=== PATIENT | male | born 1970 | race Caucasian/White ===

== ENCOUNTER 2018-02-13 22:51 | Emergency (ER) | payer OTHER ==
[2018-02-13 23:08] VITALS: TEMP 98.2
[2018-02-14] MEDS ORDERED: IBUPROFEN 600 MG TAB PO ONE ×2 (02:32→02:34)
[2018-02-14] MEDS ORDERED: ACETAMINOPHEN 500 MG TAB PO ONE (02:36)
[2018-02-14] MEDS ORDERED: ACETAMINOPHEN 500 MG TAB ONE (02:36)
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
[2018-02-14 05:48] VITALS: BP 130/82; PULSE 78; RESP 18; O2SAT 97
== END 2018-02-14 05:54 | disposition home or self-care (01) ==
DX: S09.90XA Unspecified injury of head, initial encounter (principal); S19.9XXA Unspecified injury of neck, initial encounter; S40.812A Abrasion of left upper arm, initial encounter; S40.811A Abrasion of right upper arm, initial encounter; S80.212A Abrasion, left knee, initial encounter; S80.211A Abrasion, right knee, initial encounter; F17.200 Nicotine dependence, unspecified, uncomplicated; V48.0XXA Car driver injured in noncollision transport accident in nontraffic accident, initial encounter; Y92.410 Unspecified street and highway as the place of occurrence of the external cause; Y99.8 Other external cause status; Y93.89 Activity, other specified
CPT/HCPCS: L0120